=== PATIENT | male | born 1940 | race Caucasian/White ===

== ENCOUNTER → 2019-12-09 | Outpatient (CLI) | payer MEDICARE, OTHER ==
[~2019-12-09] MED LIST: ACET325 PO; ALLERCLEAR10 MG PO; Artificial Tea1 EACH BOTHEYES; BISA10S PR; CEFU500T30 PO; CEPH250A PO; CODE30; DORZOLAMIDE 2%10 ML BOTHEYES; DORZOPSO; FURO40 PO; Fleet Enema132 ML PR; Keflex250 MG PO; LASIX40 MG PO; LATANOPROST2.5 M1 BOTHEYES; LORA.5 PO; MILK OF MA400 MG/5 M PO; ONDA4 PO; PANT40 PO; POLYETHYLENE G500 G1 PO; POTCHL20ER PO; THERA1 EACH PO; TRAZ100 PO; Vitamin B-150 MG PO
[2019-12-09 16:46] LABS: Bilirubin, Urine Neg (Neg); Blood, Urine 5+ (Neg); Glucose Qualitative, Urine Neg (Neg); Ketones, Urine Neg (Neg); Leukocyte Esterase, Urine 3+ (Neg); Nitrite, Urine Pos (Neg); Protein, Urine 2+ (Neg); Urobilinogen, Urine NORM (Normal)
[2019-12-09 17:14] LABS: Appearance, Urine Cloudy (Clear); Color, Urine Yellow (P-Yellow)
[2019-12-09 17:15] LABS: Bacteria Many /hpf; Red Blood Cells, Urine TNTC /hpf (0-2); Squamous Epithelial Cells Few /hpf (Few); White Blood Cells, Urine TNTC /hpf (0-5)
[2019-12-09 17:19] LABS: Albumin, Blood 2.7 g/dL (3.4-5.0); Albumin/Globulin Ratio 0.6 (0.8-1.8); Bilirubin, Total 0.4 mg/dL (0.1-1.0); Bun/Creatinine Ratio 20.3 (12.0-20.0); Calcium, Blood 9.5 mg/dL (8.5-10.1); Creatinine, Blood 1.77 mg/dL (0.60-1.20); Globulin, Blood 4.9 g/dL (2.2-4.0); Potassium, Blood 4.5 mmol/L (3.5-5.5); Total Protein, Blood 7.6 g/dL (6.4-8.2)
[2019-12-09 17:41] LABS: Hematocrit 38.8 % (37.0-53.0); Hemoglobin 12.2 g/dL (13.5-17.5); Mean Corpuscular HGB 30.1 pg (26.0-34.0); Mean Corpuscular HGB Conc 31.4 g/dL (31.5-36.5); Mean Corpuscular Volume 96 fL (80-100); NRBC ABSOLUTE 0.02 K/mm3 (0.00-0.02); NRBC Auto 0.2 /100 WBC (0.0-0.2); RDW Coefficient Variation 18.9 % (11.7-14.2); RDW Standard Deviation 55.4 fL (35.1-46.3); Red Blood Cell Count 4.05 M/mm3 (4.30-5.90); White Blood Cell Count 8.17 K/mm3 (4.00-11.30)
[2019-12-09 17:51] LABS: Mean Platelet Volume 12.6 fL (9.1-12.4); Platelet Count 99 K/mm3 (150-400)
== END | disposition home or self-care (01) ==
LOC: LAB RH → EDSTATUS 11:39 → LAB RH 11:41
DX: N18.3 Chronic kidney disease, stage 3 (moderate) (principal); I50.9 Heart failure, unspecified
CPT/HCPCS: 80053; 81001; 83880; 85027; 87077; 87086; 87186

== ENCOUNTER 2019-12-10 04:29 | Inpatient (IN) | payer MEDICARE, OTHER ==
[~2019-12-10] VITALS: Ht 185.4 cm; Wt 117.8 kg
[2019-12-10 05:12] LABS: BASOPHILS ABSOLUTE AUTO 0.02 K/mm3 (0.00-0.23); BASOPHILS PERCENT AUTO 0 % (0-2); EOSINOPHILS ABSOLUTE AUTO 0.19 K/mm3 (0.00-0.68); EOSINOPHILS PERCENT AUTO 2 % (0-6); Hematocrit 38.3 % (37.0-53.0); Hemoglobin 12.4 g/dL (13.5-17.5); IMMATURE GRAN PERCENT AUTO 1 % (0-1); LYMPHOCYTES ABSOLUTE AUTO 1.09 K/mm3 (0.84-5.20); LYMPHOCYTES PERCENT AUTO 13 % (21-46); MONOCYTES ABSOLUTE AUTO 1.01 K/mm3 (0.16-1.47); MONOCYTES PERCENT AUTO 12 % (4-13); Mean Corpuscular HGB 31.5 pg (26.0-34.0); Mean Corpuscular HGB Conc 32.4 g/dL (31.5-36.5); Mean Corpuscular Volume 97 fL (80-100); Mean Platelet Volume 10.9 fL (9.1-12.4); NEUTROPHILS ABSOLUTE AUTO 6.22 K/mm3 (1.96-9.15); NEUTROPHILS PERCENT AUTO 72 % (41-73); Platelet Count 171 K/mm3 (150-400); RDW Coefficient Variation 19.8 % (11.7-14.2); RDW Standard Deviation 54.8 fL (35.1-46.3); Red Blood Cell Count 3.94 M/mm3 (4.30-5.90); White Blood Cell Count 8.63 K/mm3 (4.00-11.30)
[2019-12-10 05:31] LABS: International Normalized Ratio 1.18; Prothrombin Time Results 12.5 Sec (9.7-11.5)
[2019-12-10 05:35] LABS: Alanine Aminotransfer (ALT/SGP 30 U/L (12-78); Albumin, Blood 2.8 g/dL (3.4-5.0); Albumin/Globulin Ratio 0.5 (0.8-1.8); Alk Phos 117 U/L (50-136); Anion Gap 6 mmol/L (6-16); Aspartate Aminotrans (AST/SGOT 26 U/L (12-37); Bilirubin, Total 0.5 mg/dL (0.1-1.0); Blood Urea Nitrogen 35 mg/dL (8-24); Bun/Creatinine Ratio 18.9 (12.0-20.0); CO2, Blood 28 mmol/L (21-32); Calcium, Blood 9.4 mg/dL (8.5-10.1); Chloride, Blood 109 mmol/L (98-108); Creatinine, Blood 1.85 mg/dL (0.60-1.20); Globulin, Blood 5.3 g/dL (2.2-4.0); Glomerular Filtration Rate 37 (60-); Glucose, Blood 72 mg/dL (70-99); Potassium, Blood 4.4 mmol/L (3.5-5.5); Sodium, Blood 143 mmol/L (136-145); Total Protein, Blood 8.1 g/dL (6.4-8.2)
[2019-12-10 05:36] LABS: Troponin I <0.015 ng/mL (0.000-0.040)
[2019-12-10 07:23] LABS: Source, Urine Catheter
[2019-12-10] MEDS ORDERED: ALLERCLEAR10 MG PO (07:34)
[2019-12-10] MEDS ORDERED: LATANOPROST2.5 M1 BOTHEYES (07:35)
[2019-12-10] MEDS ORDERED: LASIX40 MG PO (07:35)
[2019-12-10] MEDS ORDERED: LORA.5 PO (07:35)
[2019-12-10] MEDS ORDERED: TRAZ100 PO (07:36)
[2019-12-10] MEDS ORDERED: PANT40 PO (07:36)
[2019-12-10] MEDS ORDERED: DORZOPSO (07:37)
[2019-12-10] MEDS ORDERED: POTCHL20ER PO ×2 (07:37→18:55)
[2019-12-10] MEDS ORDERED: Keflex250 MG PO (07:39)
[2019-12-10 07:44] LABS: Appearance, Urine Cloudy (Clear); Bilirubin, Urine Neg (Neg); Blood, Urine 5+ (Neg); Color, Urine Yellow (P-Yellow); Glucose Qualitative, Urine Neg (Neg); Ketones, Urine Neg (Neg); Leukocyte Esterase, Urine 3+ (Neg); Nitrite, Urine Pos (Neg); Protein, Urine 2+ (Neg); Urobilinogen, Urine NORM (Normal)
--- NOTE | 2019-12-10 07:46 | NUR ---
REPORT RECEIVED FROM SHAUNNA DAVIES IN ER
[2019-12-10 07:53] LABS: Red Blood Cells, Urine TNTC /hpf (0-2); White Blood Cells, Urine TNTC /hpf (0-5)
[2019-12-10 07:54] LABS: Bacteria Many /hpf; Squamous Epithelial Cells Rare /hpf (Few)
[2019-12-10 08:40] LABS: pH Blood Arterial 7.27 (7.35-7.45)
[2019-12-10 08:41] LABS: PCO2 Arterial 64.6 mmHg (35-45); PO2 Arterial 76.2 mmHg (80-100)
--- NOTE | 2019-12-10 09:40 | NUR ---
ARRIVAL TO ICU PT ARRIVED TO ICU 15 APPROX 0905. UPON ARRIVAL, PT ALERT, BUT NOT FOLLOWING DIRECTIONS AND IS ORIENTED ONLY TO SELF. PLACED ON BIPAP DUE TO CRITICAL ABG BY RT CURLY. PT IMMEDIATELY GRABBING FOR BIPAP AND IS NOT REDIRECTABLE. REQUIRES TWO PEOPLE ON EACH SIDE TO KEEP ARMS FROM PULLING OFF BIPAP MASK. BILAT WRIST RESTRAINTS APPLIED. PT'S LINENS CHANGED, PT CLEANED, PHOTOS TAKEN OF WOUNDS, AND DRESSINGS APPLIED WITH THREE PERSON ASSIST. PT EXTREMELY TENSE, WORKING AGAINST STAFF. WHEN ASKED IF HE IS IN PAIN HE STATES, "NO." PT RELAXES WITH DECREASED STIMULI AND GOES TO SLEEP. VITALS STABLE, SEE FLOWSHEET. SEE ADMISSION ASSESSMENT. OBTAINING RECORDS FROM [facility] FOR COMPLETION OF HISTORY AND MED REC PT IS CURRENTLY UNABLE TO PROVIDE INFORMATION.
[2019-12-10 10:19] LABS: Influenza A Negative (NEGATIVE); Influenza B Negative (NEGATIVE)
--- NOTE | 2019-12-10 12:06 | NUR ---
UPDATE TO FRIEND PT'S FRIEND SAMSON CALLED FOR UPDATE. WHEN ASKED IF OK TO PROVIDE HER INFORMATION, PT STATES YES. UPDATE PROVIDED. SAMSON EXPLAINS THAT PT DOES NOT HAVE ANY FAMILY AND THAT A FEW YEARS AGO SHE WAS HIS CAREGIVER SO SHE CHECKS IN ON HIM AND HELPS WITH HIS CARE.
[2019-12-10 14:41] LABS: Base Excess Venous 1.1 mmol/L; PCO2 Venous 61.1 mmHg (38-42); PO2 Venous 46.9 mmHg (38-42); pH Blood Venous 7.27 (7.34-7.37)
--- NOTE | 2019-12-10 16:14 | NUR ---
DR. CASTILLO CONSULT DR. CASTILLO AT BEDSIDE. DISCUSSED NEURO STATUS. PT MORE SLEEPY THIS EVENING, DOES MOAN RESPONSES AND FOLLOWS COMMANDS. PT SQUEEZES HANDS BILERALLY ON COMMAND. ALSO DISCUSSED PT'S HEART RHYTHM. PREVIOUSLY RATE OF 80'S-100'S, PT NOW 50'S-60'S. REPEAT EKG NOTES SINUS BRADYCARDIA WITH 1ST DEGREE AV BLOCK. VISUALIZED BY DR. CASTILLO. BIPAP SETTINGS CHANGED FROM 14/7 BACKUP 12 TO A BACKUP RATE OF [address] CASTILLO. OTHERWISE, NO NEW ORDERS OR CHANGES TO PLAN OF CARE. PT NOTED TO HAVE A TEMP OF 96.0. WARM BLANKETS APPLIED.
[2019-12-10] MEDS ORDERED: POLYETHYLENE G500 G1 PO (18:46)
[2019-12-10] MEDS ORDERED: THERA1 EACH PO (18:46)
[2019-12-10] MEDS ORDERED: Vitamin B-150 MG PO (18:50)
[2019-12-10] MEDS ORDERED: Artificial Tea1 EACH BOTHEYES (18:51)
[2019-12-10] MEDS ORDERED: DORZOLAMIDE 2%10 ML BOTHEYES (18:53)
[2019-12-10] MEDS ORDERED: CEPH250A PO (18:54)
[2019-12-10] MEDS ORDERED: ACET325 PO (18:56)
[2019-12-10] MEDS ORDERED: BISA10S PR (19:00)
[2019-12-10] MEDS ORDERED: Fleet Enema132 ML PR (19:01)
[2019-12-10] MEDS ORDERED: FURO40 PO (19:02)
[2019-12-10] MEDS ORDERED: ONDA4 PO (19:03)
[2019-12-10] MEDS ORDERED: MILK OF MA400 MG/5 M PO (19:04)
[2019-12-10] MEDS ORDERED: CODE30 (19:07)
--- NOTE | 2019-12-10 19:08 | NUR ---
WOUND CARE WHEN REVIEWING PAPERWORK FROM [facility], EXTENSIVE INSTRUCTIONS NOTED IN ORDERS. - FOR STAFF REFERENCE.
--- NOTE | 2019-12-10 19:39 | NUR ---
REPORT TO HECTOR, RN TO ASSUME CARE.
--- NOTE | 2019-12-10 19:40 | NUR ---
SUMMARY THROUGHOUT SHIFT, PT HAS HAD VARYING LEVELS OF ALERTNESS AND ORIENTATION. EARLY THIS AFTERNOON, PT EXTREMELY SLEEPY AND DIFFICULT TO AROUSE. HOWEVER, WHEN AROUSED PT ABLE TO SAY HE IS IN THE HOSPITAL, THAT IT IS 2020, AND HIS NAME. HE ALSO FOLLOWED COMMANDS AT THAT TIME. OTHER TIMES, PT IS AGITATED, PULLING AT RESTRAINTS, REACHING FOR BIPAP AND UNDIRECTABLE. PT APPEARS TO DO BEST WITH MINIMAL STIMULI. THIS EVENING PT SPEAKING IN FULL SENTENCES ASKING, "WHAT HAPPENED TO ME," AND "WHAT IS A URINARY TRACT INFECTION," AND PARTICIPATING IN CONVERSATION. BLOOD PRESSURE STABLE THROUGHOUT SHIFT. NOTED IN PREVIOUS NOTE, PT BRADYCARDIC IN 50'S STARTING THIS AFTERNOON AND HAS STAYED IN THE 50'S WITH A FIRST DEGREE AND BUNDLE BRANCH BLOCK. TEMP IMPROVED WITH WARM BLANKET APPLICATION. URINE CONTINUES TO HAVE OUTPUT THAT IS GILMAR WITH LOTS OF SEDIMENT. BIPAP IN PLACE WITH CONSISTENT SETTINGS SINCE CHANGED BY DR. CASTILLO. ADMISSION HISTORY AND MED REC COMPLETED WITH INFORMATION FROM [facility] DOCUMENTS.
--- NOTE | 2019-12-10 19:51 | NUR ---
ASSUME CARE ASSUMED CARE OF THIS PATIENT AT 1940. PT IN BED, FOLLOWING COMMANDS, ALERT AND ORIENTED TO PERSON AND PLACE. SATS ABOVE 95% ON BIPAP 14/, R 18, 30% FI02. PULSES STRONG THROUGHOUT. GUERRA PATENT AND DRAINING TEA COLORED URINE WITH LOTS OF SEDIMENT. LUNGS COARSE WITH LOWER LOBES DIMINISHED. D5 1/2NS INFUSING AT 75 ML/HR. IVS PATENT AND FLUSHING WELL. WILL CONTINUE TO MONITOR.
[2019-12-11 03:54] LABS: BASOPHILS ABSOLUTE AUTO 0.01 K/mm3 (0.00-0.23); BASOPHILS PERCENT AUTO 0 % (0-2); EOSINOPHILS ABSOLUTE AUTO 0.14 K/mm3 (0.00-0.68); EOSINOPHILS PERCENT AUTO 2 % (0-6); Hematocrit 33.3 % (37.0-53.0); Hemoglobin 11.1 g/dL (13.5-17.5); IMMATURE GRAN ABSOLUTE AUTO 0.06 K/mm3 (0.00-0.10); IMMATURE GRAN PERCENT AUTO 1 % (0-1); LYMPHOCYTES ABSOLUTE AUTO 0.61 K/mm3 (0.84-5.20); LYMPHOCYTES PERCENT AUTO 10 % (21-46); MONOCYTES ABSOLUTE AUTO 0.89 K/mm3 (0.16-1.47); MONOCYTES PERCENT AUTO 14 % (4-13); Mean Corpuscular HGB 33.2 pg (26.0-34.0); Mean Corpuscular HGB Conc 33.3 g/dL (31.5-36.5); Mean Platelet Volume 11.1 fL (9.1-12.4); NEUTROPHILS ABSOLUTE AUTO 4.73 K/mm3 (1.96-9.15); NEUTROPHILS PERCENT AUTO 73 % (41-73); NRBC ABSOLUTE 0.02 K/mm3 (0.00-0.02); NRBC Auto 0.3 /100 WBC (0.0-0.2); Platelet Count 147 K/mm3 (150-400); RDW Coefficient Variation 21.5 % (11.7-14.2); Red Blood Cell Count 3.34 M/mm3 (4.30-5.90); White Blood Cell Count 6.44 K/mm3 (4.00-11.30)
[2019-12-11 04:00] LABS: Mean Corpuscular Volume 100 fL (80-100)
[2019-12-11 04:21] LABS: Calcium, Blood 9.3 mg/dL (8.5-10.1); Creatinine, Blood 1.8 mg/dL (0.60-1.20); Free Thyroxine 0.97 ng/dL (0.70-1.60); Magnesium, Blood 2.2 mg/dL (1.6-2.4); Phosphorus, Blood 2.8 mg/dL (2.5-4.9)
[2019-12-11 04:25] LABS: Thyroid Stimulating Hormone 2.45 uIU/mL (0.360-4.800)
[2019-12-11 04:26] LABS: PCO2 Arterial 42.6 mmHg (35-45); PO2 Arterial 68.8 mmHg (80-100); pH Blood Arterial 7.42 (7.35-7.45)
--- NOTE | 2019-12-11 07:03 | NUR ---
SHIFT SUMMARY PT ALERT TO SELF. COMPLAINED OF BIPAP ALL NIGHT, ASKIGN FOR IT TO BE TAKEN OFF. PT CONFUSED. LUNGS COARSE THROUGHOUT. PT FEVER AT 0630 OF 101.3. SUPPOSITORY ADMINISTERED. PT REMAINED ON BIPAP 14/, 18, 30%. NO OTHER EVENTS. WILL CONTINUE TO MONITOR.
--- NOTE | 2019-12-11 07:30 | NUR ---
Received report from Apple MAZA. Patient sleeping with BIPAP in place 13/06 and FiO2 30% and sats 94%. He arouses easily and falls back to sleep. He has two FS IV one in RW and the otherLW, both dressingsa intact and sites WNL's. LW IV infiusing D5 1/2 at 75ml/hr Ceftriaxone just finished in RW and flushed and SL.
--- NOTE | 2019-12-11 07:30 | NUR ---
Received report from Apple MAZA. Patient resting but arouses easily. She is on RA and sats mid 90%. She has PICC Line JIGAR, dressing intact and site WNL's and is infusing CPN and Abx. She has attends in place for incontinence of urine and stool.
--- NOTE | 2019-12-11 09:30 | NUR ---
Patient awake and has clear liquid diet and tolerated yellow jellow, no coughor signs of aspiration. She remains on RA and sats mid 90%'s. She is alert to place person and year. She is very appreciative of her care and very pleasant. Changed her linen and attends that were wet.
--- NOTE | 2019-12-11 09:31 | NUR ---
Charge nurse went in room and assessed patient just prior to going in room and removed BIPAP and restraits at 0825 and patient was oriented and followed commands. He is currently on GABRIELA and sats 93%. He assissted with amcare and washed upper dentures. He is able to use cup to take intake of water. He calls appropriately. He continues D5 1/2 at 75ml/hr.
--- NOTE | 2019-12-11 11:32 | NUR ---
Patient has been doing well out of restraints and has called appropriatly. VSS. He remains on RA and sas 94%. He was really hungry and agreed to wait for lunch as it was too late to get tray when he started to get hungry. He has been watching footbal and occassionally needs help with TV controls.
--- NOTE | 2019-12-11 13:31 | NUR ---
Patient tolerated lunch with help feeding him. showed no signs of aspiration when helping eat or drink. He asked at 1230 to be placed back on BIPAP at original setting 14/7 30%. and continues to sat well. He is currently sleeping. CBG 94 and no coverage needed, he states he is not a diabetic and does not know why we are checking him.
--- NOTE | 2019-12-11 17:00 | NUR ---
No significant changes with patient. Dr Jang and Daughter have been in room , other gonzalez he has been sleeping on BIPAP 13/06 at 30% and sats low to mid 90%'s.
--- NOTE | 2019-12-11 19:13 | NUR ---
ASSUME CARE PT ALERT AND ORIENTED , OFF AND ON BIPAP THROUGHOUT THE DAY. ON RA WHEN NOT ON BIPAP. PT CURRENTLY ON RA WITH SATS ABOVE 95%. TEMP 99.0. PULSES STRONG. LUNGS SOUND WITH EXPIRATORY WHEEZES AND DIMINISHED LOWER LOBES. BOWEL TONES PRESENT. GUERRA PATENT AND DRAINIGN TO GRAVITY. NSR. BP WNL. WILL CONTINUE TO MONITOR.
[2019-12-12 04:05] LABS: Bun/Creatinine Ratio 18.7 (12.0-20.0); Calcium, Blood 8.9 mg/dL (8.5-10.1); Creatinine, Blood 1.82 mg/dL (0.60-1.20); Magnesium, Blood 2.2 mg/dL (1.6-2.4); Phosphorus, Blood 3.3 mg/dL (2.5-4.9); Potassium, Blood 3.9 mmol/L (3.5-5.5)
[2019-12-12 04:19] LABS: BASOPHILS ABSOLUTE AUTO 0.02 K/mm3 (0.00-0.23); BASOPHILS PERCENT AUTO 0 % (0-2); EOSINOPHILS ABSOLUTE AUTO 0.22 K/mm3 (0.00-0.68); EOSINOPHILS PERCENT AUTO 3 % (0-6); Hematocrit 32.8 % (37.0-53.0); Hemoglobin 11.1 g/dL (13.5-17.5); IMMATURE GRAN PERCENT AUTO 1 % (0-1); LYMPHOCYTES ABSOLUTE AUTO 1.21 K/mm3 (0.84-5.20); LYMPHOCYTES PERCENT AUTO 15 % (21-46); MONOCYTES ABSOLUTE AUTO 1.39 K/mm3 (0.16-1.47); MONOCYTES PERCENT AUTO 17 % (4-13); Mean Corpuscular HGB Conc 33.8 g/dL (31.5-36.5); Mean Corpuscular Volume 101 fL (80-100); NEUTROPHILS PERCENT AUTO 65 % (41-73); NRBC ABSOLUTE 0.02 K/mm3 (0.00-0.02); NRBC Auto 0.2 /100 WBC (0.0-0.2); RDW Coefficient Variation 22.3 % (11.7-14.2); RDW Standard Deviation 55.4 fL (35.1-46.3); Red Blood Cell Count 3.26 M/mm3 (4.30-5.90); White Blood Cell Count 8.34 K/mm3 (4.00-11.30)
[2019-12-12 04:21] LABS: Mean Platelet Volume 11.6 fL (9.1-12.4); Platelet Count 113 K/mm3 (150-400)
--- NOTE | 2019-12-12 07:17 | NUR ---
SHIFT SUMMARY PT REMAINS A&OX4. WORE BIPAP MOST OF THE NIGHT. URINE LOOKS MORE CLEAR YELLOW, LESS SEDIMENT. GOOD APPETITE- PT KEPT REQUESTING FOOD OVERNIGHT. PT HAD TROUBLE SLEEPING, STATED HE SLEPT DURING THE DAY SO HE WASN'T SLEEPY, BUT HE KNEW HE SHOULD BE SLEEPING AT NIGHT. LUNGS COARSE WITH EXPIRATORY WHEEZES. ADEQUATE URINE OUTPUT. GUERRA STILL IN PLACE PATENT AND DRAINGIN TO GRAVITY. PATIENT CONCERNED WITH THE USE OF BIPAP- ASKED IF IT IS NORMAL TO NEED IT. LOTS OF ANXIETY AND CONCERN OVERNIGHT.
--- NOTE | 2019-12-12 07:30 | NUR ---
ASSUMED CARE: REPORT RECEIVED FROM HECTOR Chavarria RN. ASSUMED CARE OF THIS PT AT APPROX 0700. ON ASSESSMENT, THE PT IS AWAKE, A&O, BUT OCCASIONALLY FORGETFUL & NEEDING REMINDERS. LS ARE COARSE, BUT IMPROVED PER REPORT. PT ON RA W/ O2 SATS > 92% BUT REQUESTS BIPAP BE PLACED HE IS "TIRED." BIPAP SETTINGS 14/7 & 30% FIO2. MONITOR SHOWS SR W/ BBB, HR 60s, BP STABLE. PT STS BEING HUNGRY THIS AM & HAS NO OTHER GI COMPLAINTS. GUERRA PATENT/ DRAINING CLEAR, DARK YELLOW URINE. WILL CONTINUE TO MONITOR & UPDATE NEEDED.
--- NOTE | 2019-12-12 08:20 | NUR ---
DR LEBRON: PROVIDER AT BEDSIDE TO EVAL PT. HE STS PT MAY BE PCU STATUS IF OKJORDAN'd W/ DR CASTILLO. NO OTHER CHANGES AT THIS TIME.
--- NOTE | 2019-12-12 10:15 | NUR ---
DR CASTILLO: PROVIDER AT BED TO EVAL PT. STS OKAY TO D/C BIPAP, RT NOTIFIED. PT MAY BE TRANSFERRED TO MED FLOOR W/ TELE, ORDERS PLACED. NO OTHER CHANGES AT THIS TIME. WILL CONTINUE TO MONITOR & UPDATE NEEDED.
--- NOTE | 2019-12-12 16:24 | NUR ---
TRANSFER TO MED FLOOR: REPORT GIVEN TO FAIZA Trimble RN TO ASSUME CARE. PT, ALL BELONGINGS, CHART & MEDS HAVE BEEN TX TO ROOM 311 AT APPROX 1620.
--- NOTE | 2019-12-12 17:45 | NUR ---
PT HAS BEEN SETTLE INTO ROOM WELL. CALL LIGHT IS WITHIN REACH AND BED ALARM IN ON. PT EATING HIS DINNER NO DISTRESS NOTED AT THIS TIME. PT DOES HAVE A LOT OF BAD ODOR DUE TO WOUND ON R SIDE AND COCCYX AREA. DR LEBRON HAS REQUESTED A SURGICAL CONSULT FOR WOUNDS. WILL CONTINUE TO MONITOR.
--- NOTE | 2019-12-12 23:25 | NUR ---
79 Y/O MALE REPOSITIONED FREQUENTLY BY STAFF FIRST 3 HOURS OF SHIFT AFTER FREQUENTLY UTILIZING CALL LIGHT OR CALLING OUT LOUDLY TO STAFF; DR ROJO WAS CONTACTED FOR SLEEP MEDICATIONS WHICH PATIENT TAKES AT [facility] WITH ORDERS RECEIVED FOR TRAZADONE 100MG ( TO ENTER ORDERS INTO SYSTEM).
--- NOTE | 2019-12-13 04:53 | NUR ---
SHIFT SUMMARY: 79 Y/O MALE HAD RESTLESS NIGHT ALL SHIFT WITH PATIENT UNABLE TO UTILIZE CALL LIGHT SYSTEM AND FREQUENTLY CALLS OUT LOUDLY FOR NURSE; PT IS ALERT AND ORIENTED X 1 (CONFUSED AND REQUIRES FREQUENT REDIRECTIONS); PT HAS PENDING SURGICAL CONSULT TODAY REGARDING COCCYX PRESSURE WOUNDS; WEARING O2 AT 2L/M PER NASAL CANNULA; DENIES PAIN OR NAUSEA; PT REPOSITIONED FREQUENTLY FOR COMFORT; TELEMETRY REFLECTS SINUS TACHYCARDIA WITH PAC PER ERASTO--RETAIL STORE CLERK; GUERRA DRAINING TEA COLORED FLUID; MEPLEX DRESSING TO COCCYX DRY AND INTACT WITH SLIGHT ODOR NOTED; BED ALARM APPLIED, BED LOW POSITION WITH CALL LIGHT AT SIDE.
[2019-12-13 08:17] LABS: PCO2 Arterial 59.6 mmHg (35-45); PO2 Arterial 96.7 mmHg (80-100); pH Blood Arterial 7.29 (7.35-7.45)
[2019-12-13 13:38] LABS: Base Excess Venous 2.3 mmol/L; Bicarbonate Venous 25.6 mmol/L (24.0-30.0); PCO2 Venous 47.2 mmHg (38-42); PO2 Venous 43.1 mmHg (38-42); pH Blood Venous 7.37 (7.34-7.37)
--- NOTE | 2019-12-13 16:50 | NUR ---
SHIFT SUMMARY PT A&O X4, PT IS ON 2L OF NC. PT MISTI ANY PAIN THIS SHIFT. PT HAS DRESSINGS ON COCCYX, BUTTOCKS, LEFT POSTERIORCALF AND L ANKLE. DR CRUZ HAD SURGICAL CONSULT THIS SHIFT, PT DECLINED AT THIS TIME. DR. CRUZ WILL STOP BY TOMORROW. PT HAS BED ALARM ON AND CALL LIGHT WITH IN REACH. WILL COUNTINUE TO MONITOR AND REPORT TO ONCOMING NOC RN.
--- NOTE | 2019-12-13 19:40 | NUR ---
GILA IS LETHARGIC AND DIFFICULT TO WAKE UP. HE RESPONDED WITH PHYSICAL STIMULI. BUT IS UNABLE TO KEEP HIS EYES OPEN. HE IS ABLE TO ANSWER ONE QUESTION AT A TIME BUT FALLS ASLEEP IN THE MIDDLE OF THE CONVERSATION OR QUESTION. LUNG SOUNDS ARE VERY DIMINISHED, SATS ON CONTINOUS PULSE OX IS 89-91% ON 2 LITERS OF O2, RESP ARE EVEN AND UNLABORED. DENIES ANY PAIN OR DISCOMFORT. CALL LIGHT WITH IN REACH. CATHETER PATENT AND DRAINING.
--- NOTE | 2019-12-14 05:29 | NUR ---
SHIFT SUMMARY: AMILCAR BECAME MORE ALERT THROUGHOUT THE SHIFT. HE WAS VERY LETHARGIC AT START OF SHIFT BUT NOW IS UP AND ASKING FOR THINGS. HE STILL PLEASANTLY CONFUSED BUT USES THE CALL LIGHT APPROPRIATLY. VS HAVE REMAINED STABLE, SATS ON CONTINUOUS BIOX REMAINED 89-95% ON 2 LITERS. HE HAD THE BIPAP ON FOR ABOUT 30 MINUTES THEN TOOK IT OFF. NO PAIN WAS NOTED. CATHETER REMAINED PATENT AND DRAINED YELLOW URINE. DRESSINGS REMAINED INTACT, SOME WITH DRAINAGE OTHERS NOT. TELE REMAINED STABLE WITH NO CHANGES. NO OTHER CHANGES TO REPORT.
[2019-12-14] MEDS ORDERED: CEFU500T30 PO (13:33)
--- NOTE | 2019-12-14 16:08 | NUR ---
PT TRANSFER PT STABLE AND TRANSFERED TO [facility]. PT ON 2L OF NC. REPORT CALLED TO IGNACIO MAZA. PT BELONGINGS SENT WITH PT. [facility] PROVIDED TRANSPORTATION.
== END 2019-12-14 15:15 | disposition home or self-care (01) | DRG 91 ==
LOC: ER 04:29 → ICUW 06:16 → MEDS 06:16 → ICUW 09:03 → MEDS 12-12 16:42
PROVIDERS: Emergency Medicine; Internal Medicine; Internal Medicine Critical Care Medicine; ADMIT Hospitalist
PROC: 5A09357 Assistance with Respiratory Ventilation, Less than 24 Consecutive Hours, Continuous Positive Airway Pressure (ICD-10-PCS; principal; 2019-12-10)
DX: G92 Toxic encephalopathy (principal); J96.02 Acute respiratory failure with hypercapnia; L89.893 Pressure ulcer of other site, stage 3; J96.01 Acute respiratory failure with hypoxia; N39.0 Urinary tract infection, site not specified; I50.32 Chronic diastolic (congestive) heart failure; J44.9 Chronic obstructive pulmonary disease, unspecified; E11.59 Type 2 diabetes mellitus with other circulatory complications; I11.0 Hypertensive heart disease with heart failure; B96.4 Proteus (mirabilis) (morganii) as the cause of diseases classified elsewhere; I69.391 Dysphagia following cerebral infarction; R13.10 Dysphagia, unspecified; E66.01 Morbid (severe) obesity due to excess calories; Z68.36 Body mass index [BMI] 36.0-36.9, adult
CPT/HCPCS: 36415; 36600; 51702; 70450; 71045; 80048; 80053; 81001; 82330; 82533; 82803; 82947; 83605; 83735; 83880; 84100; 84439; 84443; 84484; 85025; 85610; 87040; 87086; 87804; 93005; 93010; 94660; 94761; 94762; 96365-59; 99285-25; J0696; J1644; J7030; J7042; J7050

== ENCOUNTER 2020-01-13 00:27 | Day surgery (SDC) | payer MEDICARE, OTHER | END 2020-01-13 23:04 | disposition home or self-care (01) | LOC: WOUND 00:27 | DX: L89.314 Pressure ulcer of right buttock, stage 4 (principal); I13.0 Hypertensive heart and chronic kidney disease with heart failure and stage 1 through stage 4 chronic kidney disease, or unspecified chronic kidney disease; N18.3 Chronic kidney disease, stage 3 (moderate); I50.9 Heart failure, unspecified; J44.9 Chronic obstructive pulmonary disease, unspecified; F17.210 Nicotine dependence, cigarettes, uncomplicated; Z99.81 Dependence on supplemental oxygen; Z88.5 Allergy status to narcotic agent | CPT/HCPCS: G0463 ==

== ENCOUNTER 2020-01-21 00:34 | Day surgery (SDC) | payer MEDICARE, OTHER | END 2020-01-21 23:45 | disposition home or self-care (01) | LOC: WOUND 00:34 | DX: L89.314 Pressure ulcer of right buttock, stage 4 (principal) ==

== ENCOUNTER 2020-01-27 00:07 | Day surgery (SDC) | payer MEDICARE, OTHER ==
--- NOTE | 2020-01-27 19:30 | NUR ---
PT TRANSFERRED TO [facility] FROM W/C WITH STAND LIFT BY KURTIS MARCH. AND JANAY LANGSTONA ASSISTED PT TRANSFER TO W/C WITH STAND LIFT. PT LEFT IN STABLE CONDITION VIA W/C WITH EQUIPMENT SPECIALIST FROM [facility] PRESENT AND ATTENTIVE TO NEEDS OF PT.
== END 2020-01-27 18:25 ==
LOC: ATC 00:07
DX: L89.314 Pressure ulcer of right buttock, stage 4 (principal); I50.32 Chronic diastolic (congestive) heart failure; E11.9 Type 2 diabetes mellitus without complications; J44.9 Chronic obstructive pulmonary disease, unspecified; Z88.8 Allergy status to other drugs, medicaments and biological substances
CPT/HCPCS: 36569; C1751; C1894

== ENCOUNTER 2020-01-28 01:11 | Day surgery (SDC) | payer MEDICARE, OTHER | END 2020-01-28 23:26 | disposition home or self-care (01) | LOC: WOUND | DX: L89.314 Pressure ulcer of right buttock, stage 4 (principal); M86.18 Other acute osteomyelitis, other site; I13.0 Hypertensive heart and chronic kidney disease with heart failure and stage 1 through stage 4 chronic kidney disease, or unspecified chronic kidney disease; I50.9 Heart failure, unspecified; N18.3 Chronic kidney disease, stage 3 (moderate); F17.200 Nicotine dependence, unspecified, uncomplicated; J44.9 Chronic obstructive pulmonary disease, unspecified; Z99.81 Dependence on supplemental oxygen; Z79.899 Other long term (current) drug therapy | CPT/HCPCS: 87071; 87075; 87076; 87077; 87147; 87185; 87186; 87205 ==

== ENCOUNTER 2020-02-04 01:44 | Day surgery (SDC) | payer MEDICARE, OTHER | END 2020-02-04 23:21 | disposition home or self-care (01) | LOC: WOUND 01:44 | DX: L89.314 Pressure ulcer of right buttock, stage 4 (principal); M86.18 Other acute osteomyelitis, other site; I13.0 Hypertensive heart and chronic kidney disease with heart failure and stage 1 through stage 4 chronic kidney disease, or unspecified chronic kidney disease; N18.3 Chronic kidney disease, stage 3 (moderate); I50.9 Heart failure, unspecified; J44.9 Chronic obstructive pulmonary disease, unspecified; Z99.81 Dependence on supplemental oxygen; Z79.899 Other long term (current) drug therapy ==

== ENCOUNTER → 2020-02-09 | Outpatient (CLI) | payer MEDICARE, OTHER ==
[2020-02-09 11:42] LABS: Anion Gap 7 mmol/L (6-16); Blood Urea Nitrogen 23 mg/dL (8-24); CO2, Blood 33 mmol/L (21-32); Chloride, Blood 97 mmol/L (98-108); Creatinine, Blood 1.21 mg/dL (0.60-1.20); Glomerular Filtration Rate >60 (60-); Glucose, Blood 107 mg/dL (70-99); Potassium, Blood 4.1 mmol/L (3.5-5.5); Sodium, Blood 137 mmol/L (136-145); Vancomycin, Trough 19.5 ug/mL (5.0-10.0)
== END | disposition home or self-care (01) ==
LOC: LAB RH 05:50 → EDSTATUS 13:44 → LAB RH 13:45
PROVIDERS: Family Medicine
DX: M86.9 Osteomyelitis, unspecified (principal)
CPT/HCPCS: 36415; 80048; 80202

== ENCOUNTER 2020-02-11 02:49 | Day surgery (SDC) | payer MEDICARE, OTHER | END 2020-02-11 23:08 | disposition home or self-care (01) | LOC: WOUND 02:49 | DX: L89.314 Pressure ulcer of right buttock, stage 4 (principal); M86.18 Other acute osteomyelitis, other site; I13.0 Hypertensive heart and chronic kidney disease with heart failure and stage 1 through stage 4 chronic kidney disease, or unspecified chronic kidney disease; I50.9 Heart failure, unspecified; N18.3 Chronic kidney disease, stage 3 (moderate); J44.9 Chronic obstructive pulmonary disease, unspecified; Z99.81 Dependence on supplemental oxygen ==

== ENCOUNTER → 2020-02-14 | Outpatient (CLI) | payer MEDICARE, OTHER | END | disposition home or self-care (01) | LOC: LAB RH 07:58 → EDSTATUS 11:08 | DX: M86.9 Osteomyelitis, unspecified (principal) | CPT/HCPCS: 36415; 80202 ==

== ENCOUNTER → 2020-02-21 | Outpatient (CLI) | payer MEDICARE, OTHER ==
[2020-02-21 09:24] LABS: Anion Gap 5 mmol/L (6-16); Blood Urea Nitrogen 25 mg/dL (8-24); Bun/Creatinine Ratio 18.5 (12.0-20.0); CO2, Blood 33 mmol/L (21-32); Calcium, Blood 8.7 mg/dL (8.5-10.1); Chloride, Blood 102 mmol/L (98-108); Creatinine, Blood 1.35 mg/dL (0.60-1.20); Glomerular Filtration Rate 54 (60-); Glucose, Blood 95 mg/dL (70-99); Potassium, Blood 3.8 mmol/L (3.5-5.5); Sodium, Blood 140 mmol/L (136-145)
[2020-02-21 09:37] LABS: Vancomycin, Trough 21.8 ug/mL (5.0-10.0)
== END | disposition home or self-care (01) ==
LOC: LAB RH 07:39 → EDSTATUS 13:20
DX: I87.2 Venous insufficiency (chronic) (peripheral) (principal)
CPT/HCPCS: 36415; 80048; 80202

== ENCOUNTER → 2020-02-25 | Outpatient (CLI) | payer MEDICARE, OTHER ==
[2020-02-25 16:07] LABS: Anion Gap 4 mmol/L (6-16); Blood Urea Nitrogen 29 mg/dL (8-24); Bun/Creatinine Ratio 23.4 (12.0-20.0); CO2, Blood 31 mmol/L (21-32); Calcium, Blood 9.2 mg/dL (8.5-10.1); Chloride, Blood 102 mmol/L (98-108); Creatinine, Blood 1.24 mg/dL (0.60-1.20); Glomerular Filtration Rate 59 (60-); Glucose, Blood 65 mg/dL (70-99); Potassium, Blood 4.8 mmol/L (3.5-5.5); Sodium, Blood 137 mmol/L (136-145); Vancomycin, Trough 17.8 ug/mL (5.0-10.0)
== END | disposition home or self-care (01) ==
LOC: EDSTATUS 11:25 → LAB RH 15:04
PROVIDERS: Family Medicine
DX: I87.2 Venous insufficiency (chronic) (peripheral) (principal); L89.314 Pressure ulcer of right buttock, stage 4; M86.9 Osteomyelitis, unspecified
CPT/HCPCS: 80048; 80202

== ENCOUNTER → 2020-03-02 | Outpatient (CLI) | payer MEDICARE, OTHER ==
[2020-03-02 18:29] LABS: Vancomycin, Trough 19.2 ug/mL (5.0-10.0)
== END | disposition home or self-care (01) ==
LOC: LAB RH 17:40 → LAB 17:40
PROVIDERS: Family Medicine
DX: Z51.81 Encounter for therapeutic drug level monitoring (principal); M86.9 Osteomyelitis, unspecified; Z79.899 Other long term (current) drug therapy
CPT/HCPCS: 80202

== ENCOUNTER → 2020-03-06 | Outpatient (CLI) | payer MEDICARE, OTHER ==
[~2020-03-06] MED LIST changes: +DORZOPSO LEFTEYE; +LATA.005SO BOTHEYES; +MIRALAX17 G1; +ONDA4; +VANCO 500500 MG/100
[2020-03-06 18:45] LABS: Anion Gap 6 mmol/L (6-16); Blood Urea Nitrogen 31 mg/dL (8-24); Bun/Creatinine Ratio 24.4 (12.0-20.0); CO2, Blood 28 mmol/L (21-32); Calcium, Blood 9.3 mg/dL (8.5-10.1); Chloride, Blood 102 mmol/L (98-108); Creatinine, Blood 1.27 mg/dL (0.60-1.20); Glomerular Filtration Rate 58 (60-); Glucose, Blood 152 mg/dL (70-99); Sodium, Blood 136 mmol/L (136-145); Vancomycin, Trough 19.7 ug/mL (5.0-10.0)
== END | disposition home or self-care (01) ==
LOC: EDSTATUS 10:43 → LAB RH 18:17
PROVIDERS: Family Medicine
DX: I87.2 Venous insufficiency (chronic) (peripheral) (principal); M86.9 Osteomyelitis, unspecified
CPT/HCPCS: 80048; 80202

== ENCOUNTER 2020-03-07 12:37 | Day surgery (SDC) | payer MEDICARE, OTHER ==
[~2020-03-07 12:37] MED LIST changes: -DORZOPSO LEFTEYE; -LATA.005SO BOTHEYES; -MIRALAX17 G1; -ONDA4; -VANCO 500500 MG/100
== END 2020-03-07 16:20 | disposition home or self-care (01) ==
LOC: ATC 12:37
DX: E11.69 Type 2 diabetes mellitus with other specified complication (principal); M86.18 Other acute osteomyelitis, other site; L89.314 Pressure ulcer of right buttock, stage 4; M62.81 Muscle weakness (generalized); R26.81 Unsteadiness on feet
CPT/HCPCS: 99212; C1751

== ENCOUNTER → 2020-03-09 | Outpatient (CLI) | payer MEDICARE, OTHER ==
[~2020-03-09] MED LIST changes: +DORZOPSO LEFTEYE; +LATA.005SO BOTHEYES; +MIRALAX17 G1; +ONDA4; +VANCO 500500 MG/100
[2020-03-09 19:18] LABS: Anion Gap 2 mmol/L (6-16); Blood Urea Nitrogen 35 mg/dL (8-24); Bun/Creatinine Ratio 23.5 (12.0-20.0); CO2, Blood 35 mmol/L (21-32); Calcium, Blood 9.1 mg/dL (8.5-10.1); Chloride, Blood 102 mmol/L (98-108); Creatinine, Blood 1.49 mg/dL (0.60-1.20); Glomerular Filtration Rate 48 (60-); Glucose, Blood 86 mg/dL (70-99); Potassium, Blood 4.4 mmol/L (3.5-5.5); Sodium, Blood 139 mmol/L (136-145)
== END | disposition home or self-care (01) ==
LOC: EDSTATUS 10:56 → LAB RH 18:04
PROVIDERS: Family Medicine
DX: Z51.81 Encounter for therapeutic drug level monitoring (principal); R79.89 Other specified abnormal findings of blood chemistry; Z79.899 Other long term (current) drug therapy
CPT/HCPCS: 80048; 80202

== ENCOUNTER 2020-03-10 00:14 | Day surgery (SDC) | payer MEDICARE, OTHER ==
[~2020-03-10 00:14] MED LIST changes: -DORZOPSO LEFTEYE; -LATA.005SO BOTHEYES; -MIRALAX17 G1; -ONDA4; -VANCO 500500 MG/100
== END 2020-03-10 22:35 | disposition home or self-care (01) ==
LOC: WOUND 00:14
DX: L89.314 Pressure ulcer of right buttock, stage 4 (principal); M86.18 Other acute osteomyelitis, other site; I13.0 Hypertensive heart and chronic kidney disease with heart failure and stage 1 through stage 4 chronic kidney disease, or unspecified chronic kidney disease; I50.9 Heart failure, unspecified; N18.3 Chronic kidney disease, stage 3 (moderate); J44.9 Chronic obstructive pulmonary disease, unspecified; Z88.5 Allergy status to narcotic agent
CPT/HCPCS: G0463

== ENCOUNTER → 2020-03-13 | Outpatient (CLI) | payer MEDICARE, OTHER ==
[~2020-03-13] MED LIST changes: +DORZOPSO LEFTEYE; +LATA.005SO BOTHEYES; +MIRALAX17 G1; +ONDA4; +VANCO 500500 MG/100
[2020-03-13 17:47] LABS: Anion Gap 3 mmol/L (6-16); Blood Urea Nitrogen 29 mg/dL (8-24); Bun/Creatinine Ratio 22.1 (12.0-20.0); CO2, Blood 33 mmol/L (21-32); Calcium, Blood 9.1 mg/dL (8.5-10.1); Chloride, Blood 102 mmol/L (98-108); Creatinine, Blood 1.31 mg/dL (0.60-1.20); Glomerular Filtration Rate 56 (60-); Glucose, Blood 76 mg/dL (70-99); Potassium, Blood 4.2 mmol/L (3.5-5.5); Sodium, Blood 138 mmol/L (136-145); Vancomycin, Trough 15.2 ug/mL (5.0-10.0)
== END | disposition home or self-care (01) ==
LOC: EDSTATUS 11:33 → LAB RH 17:20
PROVIDERS: Family Medicine
DX: Z51.81 Encounter for therapeutic drug level monitoring (principal); R79.89 Other specified abnormal findings of blood chemistry; Z79.899 Other long term (current) drug therapy
CPT/HCPCS: 80048; 80202

== ENCOUNTER 2020-03-17 00:25 | Day surgery (SDC) | payer MEDICARE, OTHER ==
[~2020-03-17 00:25] MED LIST changes: -DORZOPSO LEFTEYE; -LATA.005SO BOTHEYES; -MIRALAX17 G1; -ONDA4; -VANCO 500500 MG/100
[2020-03-17] MEDS ORDERED: FURO40 PO (10:27)
[2020-03-17] MEDS ORDERED: LORA.5 PO (10:28)
[2020-03-17] MEDS ORDERED: LATA.005SO BOTHEYES (10:28)
[2020-03-17] MEDS ORDERED: DORZOPSO LEFTEYE (10:29)
[2020-03-17] MEDS ORDERED: POTCHL20ER PO (10:31)
[2020-03-17] MEDS ORDERED: ACET325 PO (10:32)
[2020-03-17] MEDS ORDERED: MIRALAX17 G1 (10:32)
[2020-03-17] MEDS ORDERED: ONDA4 (10:32)
[2020-03-17] MEDS ORDERED: VANCO 500500 MG/100 (10:34)
== END 2020-03-17 22:56 | disposition home or self-care (01) ==
LOC: WOUND 00:25
DX: L89.314 Pressure ulcer of right buttock, stage 4 (principal); M86.18 Other acute osteomyelitis, other site
CPT/HCPCS: G0463

== ENCOUNTER 2020-03-17 09:38 | Emergency (ER) | payer MEDICARE, OTHER ==
[~2020-03-17] VITALS: Ht 182.9 cm; Wt 110.2 kg
[2020-03-17 10:21] LABS: Alanine Aminotransfer (ALT/SGP 21 U/L (12-78); Albumin, Blood 2.7 g/dL (3.4-5.0); Albumin/Globulin Ratio 0.6 (0.8-1.8); Alk Phos 121 U/L (50-136); Anion Gap 1 mmol/L (6-16); Aspartate Aminotrans (AST/SGOT 21 U/L (12-37); Bilirubin, Total 0.4 mg/dL (0.1-1.0); Blood Urea Nitrogen 27 mg/dL (8-24); Bun/Creatinine Ratio 20.1 (12.0-20.0); CO2, Blood 34 mmol/L (21-32); Calcium, Blood 9.2 mg/dL (8.5-10.1); Chloride, Blood 106 mmol/L (98-108); Creatinine, Blood 1.34 mg/dL (0.60-1.20); Globulin, Blood 4.9 g/dL (2.2-4.0); Glomerular Filtration Rate 54 (60-); Glucose, Blood 78 mg/dL (70-99); Potassium, Blood 4.5 mmol/L (3.5-5.5); Sodium, Blood 141 mmol/L (136-145); Total Protein, Blood 7.6 g/dL (6.4-8.2); Troponin I <0.015 ng/mL (0.000-0.040)
[2020-03-17] MEDS ORDERED: FURO40 PO (10:27)
[2020-03-17] MEDS ORDERED: LORA.5 PO (10:28)
[2020-03-17] MEDS ORDERED: LATA.005SO BOTHEYES (10:28)
[2020-03-17] MEDS ORDERED: DORZOPSO LEFTEYE (10:29)
[2020-03-17] MEDS ORDERED: POTCHL20ER PO (10:31)
[2020-03-17] MEDS ORDERED: MIRALAX17 G1 (10:32)
[2020-03-17] MEDS ORDERED: ONDA4 (10:32)
[2020-03-17] MEDS ORDERED: ACET325 PO (10:32)
[2020-03-17] MEDS ORDERED: VANCO 500500 MG/100 (10:34)
[2020-03-17 10:35] LABS: Free Thyroxine 0.98 ng/dL (0.70-1.60); Magnesium, Blood 2.4 mg/dL (1.6-2.4)
[2020-03-17 10:36] LABS: BASOPHILS ABSOLUTE AUTO 0.02 K/mm3 (0.00-0.23); BASOPHILS PERCENT AUTO 0 % (0-2); EOSINOPHILS ABSOLUTE AUTO 0.61 K/mm3 (0.00-0.68); EOSINOPHILS PERCENT AUTO 10 % (0-6); Hematocrit 38.1 % (37.0-53.0); Hemoglobin 10.8 g/dL (13.5-17.5); IMMATURE GRAN ABSOLUTE AUTO 0.01 K/mm3 (0.00-0.10); IMMATURE GRAN PERCENT AUTO 0 % (0-1); LYMPHOCYTES ABSOLUTE AUTO 1.74 K/mm3 (0.84-5.20); LYMPHOCYTES PERCENT AUTO 28 % (21-46); MONOCYTES ABSOLUTE AUTO 0.56 K/mm3 (0.16-1.47); MONOCYTES PERCENT AUTO 9 % (4-13); Mean Corpuscular HGB 27.2 pg (26.0-34.0); Mean Corpuscular HGB Conc 28.3 g/dL (31.5-36.5); Mean Corpuscular Volume 96 fL (80-100); Mean Platelet Volume 10.9 fL (9.1-12.4); NEUTROPHILS PERCENT AUTO 52 % (41-73); Platelet Count 201 K/mm3 (150-400); RDW Standard Deviation 67.7 fL (35.1-46.3); Red Blood Cell Count 3.97 M/mm3 (4.30-5.90); White Blood Cell Count 6.14 K/mm3 (4.00-11.30)
[2020-03-17 10:37] LABS: Thyroid Stimulating Hormone 2.2 uIU/mL (0.360-4.800)
== END 2020-03-17 12:01 | disposition home or self-care (01) ==
LOC: ER 09:38
PROVIDERS: Physician Assistant
DX: I49.3 Ventricular premature depolarization (principal); J44.9 Chronic obstructive pulmonary disease, unspecified; I50.32 Chronic diastolic (congestive) heart failure; E11.9 Type 2 diabetes mellitus without complications; Z88.8 Allergy status to other drugs, medicaments and biological substances; Z79.899 Other long term (current) drug therapy; Z86.73 Personal history of transient ischemic attack (TIA), and cerebral infarction without residual deficits
CPT/HCPCS: 71045; 80053; 83735; 84439; 84443; 84484; 85025; 93005; 93010; 99284-25

== ENCOUNTER 2020-03-24 00:37 | Day surgery (SDC) | payer MEDICARE, OTHER ==
[~2020-03-24 00:37] MED LIST changes: +DORZOPSO LEFTEYE; +LATA.005SO BOTHEYES; +MIRALAX17 G1; +ONDA4; +VANCO 500500 MG/100
== END 2020-03-24 23:09 | disposition home or self-care (01) ==
LOC: WOUND 00:37
DX: L89.314 Pressure ulcer of right buttock, stage 4 (principal); M86.18 Other acute osteomyelitis, other site; I13.0 Hypertensive heart and chronic kidney disease with heart failure and stage 1 through stage 4 chronic kidney disease, or unspecified chronic kidney disease; N18.2 Chronic kidney disease, stage 2 (mild); I50.9 Heart failure, unspecified; J44.9 Chronic obstructive pulmonary disease, unspecified; F17.200 Nicotine dependence, unspecified, uncomplicated; Z79.899 Other long term (current) drug therapy
CPT/HCPCS: G0463

== ENCOUNTER → 2020-03-27 | Outpatient (CLI) | payer MEDICARE, OTHER | END | disposition home or self-care (01) | LOC: LAB RH 08:45 → EDSTATUS 09:29 | DX: I67.9 Cerebrovascular disease, unspecified (principal); N18.3 Chronic kidney disease, stage 3 (moderate); I50.9 Heart failure, unspecified | CPT/HCPCS: 85651; 86140 ==

== ENCOUNTER 2020-04-18 08:05 | Inpatient (IN) | payer MEDICARE, OTHER ==
[~2020-04-18] VITALS: Ht 182.9 cm; Wt 111.1 kg
[~2020-04-18 08:05] MED LIST changes: +Amox Tr-K Clv1 EAC2 PO
[2020-04-18] MEDS ORDERED: BENADRYL25 MG PO (08:16)
[2020-04-18] MEDS ORDERED: TRAZ50 PO (08:17)
[2020-04-18] MEDS ORDERED: Flonase 0.05% N16 GM ×2 (08:17→15:06)
[2020-04-18] MEDS ORDERED: DORZOPSO (08:18)
[2020-04-18] MEDS ORDERED: B-1100 M1 PO (08:19)
[2020-04-18] MEDS ORDERED: Loratadine10 MG PO (08:19)
[2020-04-18 08:39] LABS: Source, Urine Catheter
[2020-04-18 08:54] LABS: BASOPHILS ABSOLUTE AUTO 0.02 K/mm3 (0.00-0.23); BASOPHILS PERCENT AUTO 0 % (0-2); EOSINOPHILS ABSOLUTE AUTO 0.19 K/mm3 (0.00-0.68); EOSINOPHILS PERCENT AUTO 3 % (0-6); Hematocrit 38.7 % (37.0-53.0); Hemoglobin 11.6 g/dL (13.5-17.5); IMMATURE GRAN ABSOLUTE AUTO 0.03 K/mm3 (0.00-0.10); IMMATURE GRAN PERCENT AUTO 0 % (0-1); LYMPHOCYTES ABSOLUTE AUTO 1.01 K/mm3 (0.84-5.20); LYMPHOCYTES PERCENT AUTO 15 % (21-46); MONOCYTES ABSOLUTE AUTO 0.68 K/mm3 (0.16-1.47); MONOCYTES PERCENT AUTO 10 % (4-13); Mean Corpuscular HGB 28.8 pg (26.0-34.0); Mean Corpuscular Volume 96 fL (80-100); Mean Platelet Volume 11.8 fL (9.1-12.4); NEUTROPHILS ABSOLUTE AUTO 4.92 K/mm3 (1.96-9.15); NEUTROPHILS PERCENT AUTO 72 % (41-73); Platelet Count 161 K/mm3 (150-400); RDW Coefficient Variation 20.8 % (11.7-14.2); RDW Standard Deviation 61.1 fL (35.1-46.3); Red Blood Cell Count 4.03 M/mm3 (4.30-5.90); White Blood Cell Count 6.85 K/mm3 (4.00-11.30)
[2020-04-18 09:13] LABS: Bilirubin, Urine Neg (Neg); Blood, Urine 3+ (Neg); Glucose Qualitative, Urine Neg (Neg); Ketones, Urine 1+ (Neg); Leukocyte Esterase, Urine 3+ (Neg); Nitrite, Urine Pos (Neg); Protein, Urine 2+ (Neg); Specific Gravity, Urine 1.015 (1.003-1.022); Urobilinogen, Urine 1+ (Normal)
[2020-04-18 09:15] LABS: Albumin, Blood 2.9 g/dL (3.4-5.0); Albumin/Globulin Ratio 0.6 (0.8-1.8); Bilirubin, Total 0.7 mg/dL (0.1-1.0); Calcium, Blood 9.3 mg/dL (8.5-10.1); Creatinine, Blood 1.68 mg/dL (0.60-1.20); Globulin, Blood 5.2 g/dL (2.2-4.0); Total Protein, Blood 8.1 g/dL (6.4-8.2)
[2020-04-18 09:27] LABS: Appearance, Urine Hazy (Clear); Color, Urine Yellow (P-Yellow); White Blood Cells, Urine TNTC /hpf (0-5)
[2020-04-18 09:28] LABS: Bacteria Many /hpf; Squamous Epithelial Cells Not Seen /hpf (Few)
[2020-04-18] MEDS ORDERED: Daily Multiple1 EACH PO (11:50)
[2020-04-18] MEDS ORDERED: ARTIFICIAL TEAR15 M2 BOTHEYES (11:51)
--- NOTE | 2020-04-18 14:00 | NUR ---
PT ARRIVED TO ROOM 301 VIA STRETCHER AT 1300. TRANSFERRED TO BED AND SETTLED IN. UNABLE TO FULLY GIVE DATE OF , ONLY DAY AND MONTH. HAS BEEN YELLING OUT FOR HELP SINCE ARRIVAL BUT WHEN ASKED WHAT HIS NEEDS ARE HE DOESN'T ANSWER OR SAYS NOTHING. MAKING ATTEMPTS TO CALM PT WHENEVER IN THE ROOM. PULLING AT GOWN-DID SAY HE FELT LIKE HE WAS BEING CHOKED BUT FELT BETTER WITH GOWN DOWN. O2 PLACED BUT KEPT PULLING IT OFF.
[2020-04-18] MEDS ORDERED: MIRALAX17 GM PO (14:59)
[2020-04-18] MEDS ORDERED: MILK OF MA400 MG/5 M PO (15:03)
[2020-04-18] MEDS ORDERED: BISA10S PR (15:05)
[2020-04-18] MEDS ORDERED: FLEET ENEMA EX230 ML PR (15:06)
[2020-04-18] MEDS ORDERED: ACET325 PO (15:09)
--- NOTE | 2020-04-18 15:39 | NUR ---
Initial spiritual care note: Mr. Marin appears confused and weak. He says "Hi" and "OK" but cannot engage in conversation. He appears to drift in and out of sleep. He was mumbling incoherantly when I entered. He kept scratching his hands and arms. I put lotion on his arms and hands and spoke soothingly to him. Assured him of love and care. He would smile at me from time to time. Clearly unable to understand/grasp any code status discussion. Prayer provided. I will remain available.
--- NOTE | 2020-04-18 17:31 | NUR ---
SHIFT SUMMARY PT HAS CONTINUED TO YELL OUT OCC BUT UNABLE TO EXPLAIN WHAT HIS NEEDS ARE. DOES APPEAR SOB WITH TURNING OR REPOSITIONING. OFFERED O2 AGAIN BUT PULLED IT OFF. DRESSING TO R THIGH CHANGED AND ALSO SEEN BY DR. HART. DR CRUZ IN TO SEE PT BUT WAS OUT FOR A CT. DR. CRUZ REPORTS CT TO ABDOMEN ONLY SHOWS FAT AT CONCERNING SITE AND WILL COME SEE PT TOMORROW. ABDOMEN IS TENDER, FIRM AND APPEARS DISTENDEND.
--- NOTE | 2020-04-18 20:49 | NUR ---
ASSUMED CARE OF GILA. HE WAS A TRANSFER FROM ROOM 301. HE IS VERY CONFUSED, NOT OPENING UP HIS EYES, JUST GRUNTING AND MAKING SOUNDS. HIS TONGUE IS HANGING OUT, DRY. UNABLE TO RESPOND TO QUESTIONS BUT DOES OPEN HIS EYES TO HIS NAME. LUNG SOUNDS HAVE SOME EXPIRTORY WHEEZES. HR REGULAR RYTHEM. NO CLOTHES ON HE CONTINUES TO PULL THEM OFF. HE HAS BEEN SCRATCHING AT HIS NECK, APPLIED LOTION DUE TO DRYNESS. NO ATTENDS IN PLACE. CATHETER PRESENT AND PATENT. ATTACHED STAT LOCK TO INNER THIGH. CATHETER CARE DONE, LITTLE BLOOD NOTED TO URETHA. DRESSING TO BOTTOM INTACT. BED ALARM ON.
--- NOTE | 2020-04-19 02:06 | NUR ---
GILA IS AWAKE LISTENING TO TV, HE DOOZES OFF AND ON. HES RESPONDING TO SOME QUESTIONS BUT SPEECH IS VERY GARBLED, BUT IS ABLE TO GET HIS POINT ACROSS. REPOSITIONED HIM.
--- NOTE | 2020-04-19 03:30 | NUR ---
HEARD AMILCAR HACKING/DRY HEAVING. ON ARRIVAL TO ROOM, FOUND HIM GASPING FOR AIR AND TRYING TO BREATH. HE WAS PURPLE IN THE FACE, LIPS TURNING BLUE. SAT HIM UP IN BED IMMEDIATLY AND HE HACKED UP A VERY LARGE THICK MOSS COLOR MUCUS PLUG. THEN HE CONTINUED HACKING UP SMALL AMOUNTS AND SPITING IT OUT. SUCTION WAS HOOKED UP TO CLEAR THE AIR WAY. HE FIGHTS REALLY HARD MAKING IT DIFFICULT TO SUCTION. PATIENT IS SITTING STRAIGHT UP, STILL COUGHING BUT CLEARER THEN HE WAS PREVIOUSLY.
--- NOTE | 2020-04-19 04:36 | NUR ---
SHIFT SUMMARY; 79 Y/O ADMITTED FOR AMS W/ UTI. TRANSFERRED FROM RM 301. ALERT BUT NON-VERBAL. GRUNTS AND MAKES LOUD NOISES LIKE HE IS YELLING. REPONDS TO NAME, FOLLOWS SOME DIRECTION. HX OF CVA W/ (L) FACIAL DROOP, GARGLED SPEECH. HULLUCINATIONS NOTED EVIDENCE OF GRABBING THINGS IN AIR AND ACTING LIKE HE WAS THROWING IT. GRABS AT NECK IF PULLING THINGS OFF HIM. DOES NOT LIKE CLOTHING ON. PULLS AT TUBES AND LINES, HAD TO CONCEAL. SLEPT OFF AND ON FOR SHORT PERIODS. ORAL CARE PROVIDED FOR DRY ORAL CAVITY. DRESSING TO BOTTOM REMAINED INTACT AND DRY. CATHETER OUTPUT WAS 2300 ORANGE SEDIMENT URINE. MUCUS NOTED TO URTHREA, CATH CARE SEVERAL TIMES PERFORMED. REPOSITIONED PRN. HACKING, DRY HEAVING NOTED LATE THIS AM, ARRIVED TO ROOM PT PURPLE IN FACE, BLUE LIPS. REPOSITIONED TO SITTING, VERY LG MOSS THICK MUCUS PLUG CAME OUT. SEVERAL SMALL MUCUS NOTED AFTER. SUCTION HOOKED UP, HE FOUGHT BEING SUCTIONED. SM SECREATIONS ABLED TO BE CLEARED. KEPT IN FOWLERS POSITION, BED ALARM ON. IV PATENT-1025 INFUSED. BLOOD SUGAR 76. VS WNL, AFEBRILE. HE BECAME MORE CLEAR THE MORNING WENT ON. NOW ABLE TO FORM WORDS AND ASK FOR HELP, BUT STILL DISORIENTED. WILL CONTINUE TO MONITOR TILL DAY SHIFT ARRIVES.
[2020-04-19 05:36] LABS: BASOPHILS ABSOLUTE AUTO 0.01 K/mm3 (0.00-0.23); BASOPHILS PERCENT AUTO 0 % (0-2); EOSINOPHILS PERCENT AUTO 2 % (0-6); Hematocrit 36.2 % (37.0-53.0); Hemoglobin 11.3 g/dL (13.5-17.5); IMMATURE GRAN ABSOLUTE AUTO 0.02 K/mm3 (0.00-0.10); IMMATURE GRAN PERCENT AUTO 0 % (0-1); LYMPHOCYTES ABSOLUTE AUTO 0.59 K/mm3 (0.84-5.20); LYMPHOCYTES PERCENT AUTO 9 % (21-46); MONOCYTES PERCENT AUTO 9 % (4-13); Mean Corpuscular HGB 30.5 pg (26.0-34.0); Mean Corpuscular HGB Conc 31.2 g/dL (31.5-36.5); Mean Corpuscular Volume 98 fL (80-100); Mean Platelet Volume 11.9 fL (9.1-12.4); NEUTROPHILS ABSOLUTE AUTO 5.42 K/mm3 (1.96-9.15); NEUTROPHILS PERCENT AUTO 80 % (41-73); Platelet Count 146 K/mm3 (150-400); RDW Coefficient Variation 22.2 % (11.7-14.2); White Blood Cell Count 6.74 K/mm3 (4.00-11.30)
[2020-04-19 05:58] LABS: Bun/Creatinine Ratio 26.3 (12.0-20.0); Calcium, Blood 9.2 mg/dL (8.5-10.1); Creatinine, Blood 1.67 mg/dL (0.60-1.20); Potassium, Blood 4.4 mmol/L (3.5-5.5)
--- NOTE | 2020-04-19 06:12 | NUR ---
SPOKE TO DR. WEST REGARDING DROP IN BLOOD SUGAR TO 69. ON Q 6 BLOOD SUGAR CHECKS. IV FLUIDS SWITCHED TO D5 1/2NS. WILL START WHEN MED IS AVAILABLE.
--- NOTE | 2020-04-19 10:00 | NUR ---
PT AWAKE, ALERT, GARBLED SPEACH, VERY HARD TO UNDERSTAND. DENIES PAIN. HE STATES AFRAID WILL FLOAT OUT WINDOW. EXPLAINED WILL BE FINE IN BED. WILL NOT FLOAT. REASSURED. HELPED SOME. H/R REG, NO MURMER NOTED. NO TELE. LUNGS CLEAR, RESP LABORED, REGULAR, VSS. BT X4 ALST BM UNKNOWN BY PT. VOIDS GUERRA CATHETER, YELLOW FLUID WITH COUPLE SMALL RED SPOTS NOTED. SOME CLOUDY. BED IN LOW POSITION, CALL LITE IN REACH, BED ALARM ON FOR SAFETY
--- NOTE | 2020-04-19 12:07 | NUR ---
DR LEBRON ORDERED LOVENOX. PLACII ORDER
--- NOTE | 2020-04-19 14:59 | NUR ---
Spiritual care visit conducted. Patient is lying in bed and resting. Patient easily awakens to the sound of his name. Patient is not very verbal but allows for me to pray for him. I gladly provide prayer. Patient responds well and shows signs of an elevated mood. I will continue to remain available to patient and family.
--- NOTE | 2020-04-19 19:35 | NUR ---
pt pleasant confused today. did c/o being afraid he would float out of window. might cut legs on window. reoriented. pt some fearful for awhile. improved t/o day. some calling out, this also improved. did ask to use wheelchair this aft. explained will keep to bed today. see about tomorrow when more alert. cbgs stabled out today with the d-5 fluids. pt can answer some questions but confusion and disorientation continue. speach slightly improved from this am. bed in low position,c all lite in reach, bed alarm on for safty
--- NOTE | 2020-04-20 05:37 | NUR ---
SUMMARY PT AOX 2-3 AND GARBLED SPEECH. THIS AM PT IS ABLE TO ANSWER CORRECT YEAR AND WHERE HE IS AT. PT IS MORE UNDERSTANDABLE THIS AM. PT REPOSITIONED FREQUENTLY. PT GUERRA IS DRAINING CLEAR YELLOW URINE. PT ORAL CARE PERFORMED FREQUENTLY. PT HAS SLEPT MOST OF SHIFT. PT DOES NOT USE CALL LIGHT AND YELLS OUT WHEN HE HAS A NEED. CALL LIGHT IN REACH AND BED ALARM ON.
--- NOTE | 2020-04-20 19:35 | NUR ---
SHIFT SUMMARY: NO ACUTE CHANGES TO REPORT THIS SHIFT. PT HX CVA; ALERT; ORIENTED X2; COOPERATIVE WITH CARE. O2 @ 2L. GUERRA IN PLACE; PATENT AND DRAINING. AMS; STRICT NPO. D5 IN 1/2NS @ 75; IV ABX CONTINUING. REPORT GIVEN TO ONCOMING RN.
[2020-04-21 06:00] LABS: Bun/Creatinine Ratio 29.5 (12.0-20.0); Creatinine, Blood 1.76 mg/dL (0.60-1.20); Potassium, Blood 4.4 mmol/L (3.5-5.5)
[2020-04-21 06:19] LABS: BASOPHILS ABSOLUTE AUTO 0.02 K/mm3 (0.00-0.23); BASOPHILS PERCENT AUTO 0 % (0-2); EOSINOPHILS ABSOLUTE AUTO 0.11 K/mm3 (0.00-0.68); EOSINOPHILS PERCENT AUTO 2 % (0-6); Hemoglobin 10.3 g/dL (13.5-17.5); IMMATURE GRAN ABSOLUTE AUTO 0.03 K/mm3 (0.00-0.10); IMMATURE GRAN PERCENT AUTO 0 % (0-1); LYMPHOCYTES ABSOLUTE AUTO 0.93 K/mm3 (0.84-5.20); LYMPHOCYTES PERCENT AUTO 13 % (21-46); MONOCYTES PERCENT AUTO 11 % (4-13); Mean Corpuscular HGB 26.3 pg (26.0-34.0); Mean Corpuscular Volume 97 fL (80-100); Mean Platelet Volume 11.2 fL (9.1-12.4); NEUTROPHILS ABSOLUTE AUTO 5.32 K/mm3 (1.96-9.15); NEUTROPHILS PERCENT AUTO 74 % (41-73); Platelet Count 144 K/mm3 (150-400); RDW Coefficient Variation 18.6 % (11.7-14.2); RDW Standard Deviation 65.5 fL (35.1-46.3); Red Blood Cell Count 3.92 M/mm3 (4.30-5.90); White Blood Cell Count 7.21 K/mm3 (4.00-11.30)
[2020-04-21 06:20] LABS: Mean Corpuscular HGB Conc 27.1 g/dL (31.5-36.5)
--- NOTE | 2020-04-21 09:12 | NUR ---
Rn summary: Patient is semi alert, tries to talk but words are garbled. His eyes are half closed, whites of eyes show mor than usual. Pt does seem to bee hallucinating beginning of shift. Patient does seem to be taking deep breaths, using some abd muscles tp breath. Pt was suctioned with oral yankhar suctionfor moderate thick white sutum after coughing. Pt seemed to be gagging and almost seems nausiated. Pt given zofran at 0023 with good relief. Pt rested well, respirations more easy, no abd muscle use. Pt did not respond this am, to verbal stimuli or stermal rub. Pt Systolic BP lower. Call to Dr. Phillip, Stat CT done. Awaiting results. Pt did open eyes when transferred to bed from [facility] after CT. Report given to Vinh MAZA, discussed changes.
--- NOTE | 2020-04-21 12:25 | NUR ---
Decision maker: Pt is confused and not able to make decisions independently. NOK on face sheet is listed as Nori Miles, . Call placed to Nori. She states that this pt does not have any family. She has taken care of him for years, she reports. His girlfriend of 16 years over a year ago, and since then she has seen a severe decline in his function and his mentation. He has multiple comorbidities that she is aware of. Nori is willing and able to make decisions for him. 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 Discussed code status change. She would like to change him to DNR/DNI status. She supports a hospice discharge back to [facility].
--- NOTE | 2020-04-21 19:29 | NUR ---
SHIFT SUMMARY: NO ACUTE CHANGES TO REPORT THIS SHIFT. PATIENT OBTUNDED. IN NO APPARENT DISTRESS. HX CVA; ASPIRATION RISK; STRICT NPO. GUERRA IN PLACE - PLACED 04/18; PATENT AND DRAINING. DECUB ULCER R BUTTOCK; MEPILEX IN PLACE. HX OSTEOMYELITIS; INFECTIOUS DISEASE (DR MAXWELL) CONSULTED. REHYDRATION & IV ABX CONTINUIN. REPORT GIVEN TO ONCOMING RN.
[2020-04-22 04:45] LABS: Hematocrit 28.3 % (37.0-53.0); Hemoglobin 10.4 g/dL (13.5-17.5); Mean Corpuscular HGB 39.5 pg (26.0-34.0); Mean Corpuscular HGB Conc 36.7 g/dL (31.5-36.5); Mean Platelet Volume 11.3 fL (9.1-12.4); NRBC ABSOLUTE 0.03 K/mm3 (0.00-0.02); NRBC Auto 0.3 /100 WBC (0.0-0.2); Platelet Count 129 K/mm3 (150-400); RDW Coefficient Variation 20.8 % (11.7-14.2); RDW Standard Deviation 70.1 fL (35.1-46.3); Red Blood Cell Count 2.63 M/mm3 (4.30-5.90); White Blood Cell Count 8.83 K/mm3 (4.00-11.30)
[2020-04-22 04:47] LABS: Mean Corpuscular Volume 108 fL (80-100)
[2020-04-22 05:02] LABS: Bun/Creatinine Ratio 31.2 (12.0-20.0); Calcium, Blood 8.6 mg/dL (8.5-10.1); Creatinine, Blood 2.34 mg/dL (0.60-1.20)
--- NOTE | 2020-04-22 05:33 | NUR ---
SHIFT SUMMARY PT CONTINUES TO BE MOSTLY UNRESPONSIVE THIS EVENING. NONVERBAL. DID OPEN HIS EYES BRIEFLY WHEN TURNING IN THE BED. SLIGHT FACIAL GRIMACING WITH STERNAL RUB. SKIN COOL TO THE TOUCH. ORAL CARE AND SUCTIONING NEEDED SEVERAL TIMES THIS SHIFT. FACE CLEANED WITH WASHRAG. GUERRA CATHETER PATENT AND DRAINING. YELLOW URINE. DRESSING TO R THIGH/BUTTOCKS C/D/I. BLE'S DISCOLORED. PALLIATIVE CARE NOTE STATES THAT PT'S DECISION MAKER AGREEABLE TO CHANGE PT'S CODE STATUS AND MOVE FORTH WITH HOSPICE. WILL PASS ON TO DAY RN. BP SLIGHTLY HYPOTENSIVE THIS AM HAS BEEN TRENDING. OTHERWISE VITAL SIGNS STABLE. PT ON 2 L O2 NC. WILL CONTINUE TO MONITOR AND REPORT TO DAY RN.
--- NOTE | 2020-04-22 09:46 | NUR ---
PATIENT DID NOT EAT BREAKFST THIS SHIFT DUE TO BEING NPO AT THIS TIME.
--- NOTE | 2020-04-22 10:12 | NUR ---
PT REMAINS UNRESPONSIVE WAS REPORTED FROM CLINICAL LABORATORY DIRECTOR. HIS RESP ARE SHALLOW AND MOIST. OCCASIONALLY HE HAS A WEAK MOIST COUGH. ORAL CARE/SUCTION HAVE BEEN PROVIDED. PT HAS DISCOLORATION TO HIS ARMS AND LEGS ALONG WITH EDEMA. DR LEBRON WAS NOTIFIED OF THE PT CONDITION THIS MORNING AND ASSESSED THE PT AT THE BEDSIDE. PT WAS CHANGED TO DNR STATUS THIS MORNING PER AND PALLIATIVE CARE. MESSAGE HAS BEEN LEFT WITH PALLIATIVE CARE REGARDING PT STATUS THIS MORNING AND THE CHARGE NURSES ARE AWARE.
--- NOTE | 2020-04-22 14:30 | NUR ---
Comfort Care: Met with nurse and hospitalist. Pt's condition has deteriorated. He has been changed to a DNR/DNI. The concern is that the pt will continue getting sicker and high probability that pt will not recover or be able to discharge back to the facility related to dying process. Call placed to Nori WALTON. She is supportive of a comfort measures only care plan. Call placed to [facility] for Nori to picker tender the pt's belongings. She knows of one friend of his that would like knowing of the pt's condition. She reports that she would like to see the pt later today, if possible. Updated nurse Kenn.
--- NOTE | 2020-04-22 15:58 | NUR ---
SHIFT SUMMARY PT HAS CONTINUED TO DECLINE TODAY AND REMAINS UNRESPONSIVE. HE HAS SPONTANEOUSLY OPENED HIS EYES AND MOANED. SKIN REMAINS EDEMATOUS THROUGHOUT ALONG WITH DISCOLORATION. DR LEBRON HAS SEEN THE PT AND PALLIATIVE CARE IS AWARE AND HAS SPOKE WITH THE PT'S DECSION MAKER. THE PT IS NOW ON COMFORT CARE. HE HAS A CHRONIC WOUND TO HIS RIGHT HIP/BUTTOCK, THE DRESSING WAS CHANGED AND REMAINS C.D.I. THE PT ALSO HAS A CHRONIC GUERRA WHICH IS DRAINING DARK YELLOW URINE BUT A VERY SMALL AMOUNT. PT HAS BEEN REPOSITIONED FREQUENTLY ALONG WITH NURSE ROUNDING. PALLIATIVE CARE HAS BEEN IN CONTACT WITH HIS PEOPLE WHO WILL BE COMING TO SEE HIM THIS [place].
--- NOTE | 2020-04-22 18:46 | NUR ---
PATIENT DID NOT EAT DINNER THIS SHIFT DUE TO BEING NPO AT THIS TIME.
--- NOTE | 2020-04-22 20:08 | NUR ---
REPORT TAKEN FROM DAYSNEFT RN. PT RESTING IN BED AT THIS TIME. HE IS STILL VERY LETHARGIC BUT MUCH MORE ALERT THAN PREVIOUS SHIFTS AND IS ANSWERING TO HIS NAME, AND SQUEEZES MY HAND WHEN I ASK. WHEN I ASKED PT IF HE HAD ANY PAIN HE RESPONDED "NO". WILL CONTINUE TO MONITOR.
--- NOTE | 2020-04-23 05:45 | NUR ---
SHIFT SUMMARY PT HAS BEEN MUCH MORE RESPONSIVE THIS SHIFT. OPENING HIS EYES AND ANSWERING TO HIS NAME. HE ANSWERS "YES", AND "NO" TO SOME OF MY QUESTIONS. HOWEVER, IS STILL SLOW TO RESPOND, AND SPEECH MOST OF THE TIME IS GARBLED AND NONSENSICAL. PT AT TIMES CAN BE HEARD SAYING "HI" TO STAFF. WHEN HE OPENS HIS EYES HIS WHITE SHOW AND HIS EYES GAZE UPWARDS. PT AT ONE POINT WAS MORE RESTLESS AND MOANING LOUDLY. MEDICATED X1 FOR PAIN. SOME OCCASIONAL DISCOMFORT WITH REPOSITIONING ALSO. HOWEVER FOR THE MOST PART PT HAS SEEMED TO REST COMFORTABLY AND MUMBLES ALOUD TO HIMSELF FREQUENTLY IF HE IS HAVING A CONVERSATION WITH SOMEONE. PT HAS HAD EXCESSIVE SECREATIONS, YANKER SUCTION AT BEDSIDE, AND ORAL CARE PERFORMED PRN. ATROPINE DROPS ALSO GIVEN PER EMAR. NO CALLS OR VISITORS THIS SHIFT. COMFORT HAS BEEN ASSESSED T/O SHIFT. BED IN LOWEST POSITION, CALL LIGHT WITHIN REACH. WILL CONTINUE TO MONITOR AND REPORT TO ONCOMING RN.
--- NOTE | 2020-04-23 10:45 | NUR ---
DURING NURSE ROUNDING PT WAS FOUND TO HAVE NO RESPIRATIONS AND NO PULSE. PT WAS ON COMFORT CARE AND PALLIATIVE CARE HAS BEEN NOTIFIED ALONG WITH THE CHARGE NURSE, NURSING MANAGER ENVIRONMENTAL, DR LEBRON AND HIS FRIEND SAMSON. PALLIATIVE CARE IS WORKING ON A PLAN FOR A MORTUARY.
== END 2020-04-23 10:38 | DRG 682 ==
LOC: ER 08:05 → MEDS 11:25
PROVIDERS: Emergency Medicine; Internal Medicine; ADMIT Family Medicine
DX: N17.9 Acute kidney failure, unspecified (principal); L89.314 Pressure ulcer of right buttock, stage 4; G92 Toxic encephalopathy; J69.0 Pneumonitis due to inhalation of food and vomit; I50.32 Chronic diastolic (congestive) heart failure; N39.0 Urinary tract infection, site not specified; M86.659 Other chronic osteomyelitis, unspecified thigh; Z51.5 Encounter for palliative care; J44.9 Chronic obstructive pulmonary disease, unspecified; N18.3 Chronic kidney disease, stage 3 (moderate); Z68.33 Body mass index [BMI] 33.0-33.9, adult; E66.01 Morbid (severe) obesity due to excess calories; I69.391 Dysphagia following cerebral infarction; B96.6 Bacteroides fragilis [B. fragilis] as the cause of diseases classified elsewhere; B96.5 Pseudomonas (aeruginosa) (mallei) (pseudomallei) as the cause of diseases classified elsewhere; R54 Age-related physical debility; E11.69 Type 2 diabetes mellitus with other specified complication; Z66 Do not resuscitate; E11.22 Type 2 diabetes mellitus with diabetic chronic kidney disease
CPT/HCPCS: 36415; 51702; 70450; 71045; 74177; 76770; 80048; 80053; 81001; 82947; 83690; 85025; 85027; 85651; 86140; 87077; 87086; 87186; 93005; 93010; 96361-59; 96374-59; 99285-25; J0696; J1650; J1956; J2060; J2405; J2543; J3370; J7030; J7042; J7050; J7120; Q9967